=== PATIENT | female | born 1970 | race Caucasian/White ===

== ENCOUNTER 2018-11-10 18:30 | Emergency (ER) | payer BC ==
[~2018-11-10] VITALS: Ht 157.5 cm; Wt 57.6 kg
[2018-11-10 18:58] VITALS: BP 130/76
--- NOTE | 2018-11-10 19:13 | PHYS DOC ---
Adult General Chief Complaint Chief Complaint: LACERATION/AVULSION HPI HPI Patient is a 48 year old female who presents with left ring finger laceration, patient was at work cutting her nails when the knife cut her accidentally. (AURA MARROQUIN APRN) Review of Systems Review of Systems Constitutional: Denies fever or chills [] Musculoskeletal: Denies back pain or joint pain [] Integument: Left ring finger laceration Neurologic: Denies headache, focal weakness or sensory changes [] All other systems were reviewed and found to be within normal limits, except as documented in this note. (AURA MARROQUIN APRN) Current Medications Current Medications Current Medications Medications (Trade) Dose Ordered Sig/Reina Start Time Stop Time Status Last Admin Dose Admin Lidocaine/Sodium Bicarbonate (Buffered Lidocaine 1%) 3 ml 1X ONCE 11/10/18 19:45 11/10/18 19:46 DC 11/10/18 19:43 3 ML (ROXANA PATTEN DO) Allergies Allergies Allergies Coded Allergies Type Severity Reaction Last Updated Verified No Known Drug Allergies 11/10/18 No (ROXANA PATTEN DO) Physical Exam Physical Exam Constitutional: Well developed, well nourished, no acute distress, non-toxic appearance. [] Skin: Tip of the left ring finger with an avulsion type laceration approximately 2 cm, the skin is still attached on the lateral aspect. Neurovascular exam is intact to the finger. There is no tendon involvement. Patient able to flex and extend the finger at the MIP PIP and DIP joints. Cap refill less than 2 seconds to the finger. Back: No tenderness, no CVA tenderness. [] Extremities: No tenderness, no cyanosis, no clubbing, ROM intact, no edema. [] Neurologic: Alert and oriented X 3, normal motor function, normal sensory function, no focal deficits noted. [] Psychologic: Affect normal, judgement normal, mood normal. [] (AURA MARROQUIN APRN) Current Patient Data Vital Signs Vital Signs Date Time Temp Pulse Resp B/P (MAP) Pulse Ox O2 Delivery O2 Flow Rate FiO2 11/10/18 18:58 98.2 88 20 130/76 (94) 99 Room Air 98.2 (ROXANA PATTEN DO) EKG EKG [] (AURA MARROQUIN APRN) Radiology/Procedures Radiology/Procedures Laceration/Wound Repair Wound Location: Left ring finger laceration Wound's Depth, Shape: C Wound Length (cm): Approximately 2 Wound Explored: clean Irrigated w/ Saline (ccs): 30 Betadine Prep?: Y Volume Anesthetic (ccs): 1% buffered lidocaine 1 mL Wound Repaired With: Vicryl 4.0 Suture Size/Type:4 interrupted sutures wound was covered with nonstick dressing. (AURA MARROQUIN APRN) Course & Med Decision Making Course & Med Decision Making Pertinent Labs and Imaging studies reviewed. (See chart for details) Patient has left ring finger laceration that was closed by me as noted in procedures. Tetanus up-to-date. Wound care instructions and return precautions provided (AURA MARROQUIN APRN) Dragon Disclaimer Dragon Disclaimer This electronic medical record was generated, in whole or in part, using a voice recognition dictation system. (AURA MARROQUIN APRN) Departure Departure Impression: Primary Impression: Laceration of finger Disposition: HOME, SELF-CARE Condition: LEFT WITHOUT BEING SEEN Referrals: NON,STAFF (PCP) Patient Instructions: Fingertip Laceration Additional Instructions: Your laceration was closed with dissolvable stitches, you can shower, keep the area clean and dry. Apply Neosporin to the area twice a day until stitches are removed. Monitor the area for any worsening condition including but not limited to increased redness to the area, warmth to the area, yellow drainage to the area and return to the ED if they occur. Follow-up with the emergency room or your own doctor as needed Attending Signature Attending Signature I have reviewed the PA[employer]'s note and plan of care. I was available for consultation as needed during the patient's visit in the emergency department. I agree with the clinical impression, plan, and disposition. (ROXANA PATTEN DO) Problem Qualifiers Primary Impression: Laceration of finger Encounter type: initial encounter Finger: ring finger Damage to nail status : without damage Foreign body presence: without foreign body Laterality: left Qualified Codes: S61.215A - Laceration without foreign body of left ring finger without damage to nail, initial encounter AURA MARROQUIN APRN Nov 10, 2018 19:13 ROXANA PATTEN DO Nov 30, 2018 12:25
[2018-11-10] MEDS ORDERED: LIDOCAINE WITH 8.4% SOD BICARB 3 ML DISP.SYRIN. INJ ONE (19:45)
== END 2018-11-10 19:52 | disposition home or self-care (01) ==
LOC: ER 18:30
DX: S61.215A Laceration without foreign body of left ring finger without damage to nail, initial encounter (principal); W26.0XXA Contact with knife, initial encounter; Y93.89 Activity, other specified; Y92.89 Other specified places as the place of occurrence of the external cause; Y99.8 Other external cause status
CPT/HCPCS: 12001; 99283